=== PATIENT | female | born 1995 | race Caucasian/White ===

== ENCOUNTER 2020-01-26 07:12 | Inpatient (IN) | payer BC ==
[2020-01-26] VITALS (69 sets, daily range): BP systolic 106–151; BP diastolic 57–91
[~2020-01-26] VITALS: Ht 160 cm; Wt 62.7 kg
--- NOTE | 2020-01-26 07:20 | NUR ---
GILBERT MALONE presented to unit via ambulation from home, accompanied by , for INDUCTION. GILBERT MALONE weighed, gowned, voided, and to bed. EFHM and TOCO applied, VS taken. GILBERT MALONE oriented to bed controls, call light, TV, heat, and A/C controls.
[2020-01-26] MEDS ORDERED: D5 LR IV SOLUTION 1,000 ML IV ONE (07:25)
[2020-01-26] MEDS: D5 LR IV SOLUTION 1,000 ML IV SCH ×2 (07:40→14:23)
[2020-01-26] MEDS ORDERED: OXYTOCIN PRE-MIX DRIP 500 ML IV ONE (07:56)
[2020-01-26] MEDS ORDERED: IBUP-1780 PO (08:03)
[2020-01-26] MEDS ORDERED: DOCU-143 PO (08:03)
[2020-01-26] MEDS ORDERED: OXYC1TAB87 PO (08:03)
--- NOTE | 2020-01-26 08:04 | Discharge Inst-Surgical ---
Discharge Inst-Surgical Depart Medication/Instructions New, Converted or Re-Newed RX: RX on Chart Consults/Follow Up Patient Instructions: As directed Orders & Referrals Follow Up Appt: Call to make follow up appt. for patient in 4 weeks. Activity Per routine post vaginal delivery instructions. Please call in RX to patient pharmacy. Diet as tolerated Patient may shower or tub bathe as desired. Activity Activity as Tolerated: No Diet Discharge Diet: No Restrictions ANDREW HOPSON MD Jan 26, 2020 08:04
[2020-01-26 08:05] LABS: BASOPHILS % (AUTO) 0 % (0-10); EOSINOPHILS # (AUTO) 0.1 10^3/uL (0.0-0.3); EOSINOPHILS % (AUTO) 1 % (0-10); HEMATOCRIT 39 % (35-52); HEMOGLOBIN 13.6 G/DL (11.5-16.0); LYMPHOCYTES # (AUTO) 1.8 X 10^3 (1.0-4.0); LYMPHOCYTES % (AUTO) 22 % (12-44); MEAN CORPUSCULAR HEMOGLOBIN 32 PG (25-34); MEAN CORPUSCULAR HGB CONC 35 G/DL (32-36); MEAN CORPUSCULAR VOLUME 92 FL (80-99); MONOCYTES # (AUTO) 0.6 X 10^3 (0.0-1.0); MONOCYTES % (AUTO) 8 % (0-12); NEUTROPHILS # (AUTO) 5.5 X 10^3 (1.8-7.8); NEUTROPHILS % (AUTO) 69 % (42-75); PLATELET COUNT 188 10^3/uL (130-400); RED CELL DISTRIBUTION WIDTH 12.9 % (10.0-14.5)
--- NOTE | 2020-01-26 08:06 | History & Physical ---
History and Physical Date Seen by Provider: Jan 26, 2020 Time Seen by Provider: 08:04 This patient is a 23-year-old 1 white female with EDC of February 02, 2020 putting her now at 39 weeks gestation. She is admitted for induction of labor. She denies ruptured membranes or bleeding. Her GBS culture after 35 weeks gestation was negative. Having occasional contractions. She has had no complications with this . Penicillin and sulfa are her allergies Medications include vitamins Medical social and surgical histories are per the antepartum record HEENT exam is normal Neck is supple no lymphadenopathy no thyromegaly Abdomen gravid soft nontender nondistended Extremities show no clubbing or cyanosis. There is no Homans sign. Pelvic exam is pending - prior exam form in clinic showed a cervix 2 cm dilated 50 percent effaced and 0 station soft and anterior putting her with that score of Bishops 8 or more Assessment and plan term at 39 weeks gestation with a favorable cervix admitted now for induction of labor. We anticipate a vaginal delivery. 39 week and elective induction of labor Allergies and Home Medications Allergies Coded Allergies: Penicillins (Verified Allergy, Unknown, HIVES/SWELLING, 01/26/20) Sulfa (Sulfonamide Antibiotics) (Verified Allergy, Unknown, UNSURE, 01/26/20) Home Medications Docusate Sodium 100 Mg Capsule, 100 MG PO BID Prescribed by: ANDREW CHEEMA on 01/26/20 08 Ibuprofen 800 Mg Tablet, 800 MG PO Q6H PRN for PAIN Prescribed by: ANDREW CHEEMA on 01/26/20 08 Oxycodone HCl/Acetaminophen 1 Each Tablet, 1 TAB PO Q4H Prescribed by: ANDREW CHEEMA on 01/26/20 08 Patient Home Medication List Home Medication List Reviewed: Yes ANDREW HOPSON MD Jan 26, 2020 08:06
[2020-01-26] MEDS: OXYTOCIN PRE-MIX DRIP 500 ML IV SCH ×2 (08:15→09:37)
[2020-01-26] MEDS ORDERED: fentaNYL 2 mcg/ml BUPIVA 0.125 100 ML ONE (12:04)
[2020-01-26] MEDS ORDERED: fentaNYL INJECTION 100 MCG/2 ML AMP ONE (12:16)
[2020-01-26] MEDS ORDERED: BUPIVACAINE 0.25% 30 ML (SENSORCAINE) VIAL ONE (12:16)
--- NOTE | 2020-01-26 12:22 | NUR ---
here for epidural placement. Procedure explained, consent reviewed and signed by anesthesia. Questions answered to patient's satisfaction. Time out taken to verify correct patient/procedure. Patient up to side of bed, assisted into sitting position. Betadine prep done x3 and sterile drape applied. Local done, see anesthesia record. Test dose given, see anesthesia record for drug and dosage. Epidural catheter secured in place. Epidural placement complete. Assisted back into bed, monitors adjusted. Epidural dosed, see anesthesia record. Epidural of Sufenta/Bupvicaine @_12cc/hr stated per pump. Patient tolerated procedure well.
[2020-01-26] MEDS ORDERED: LACTATED RINGERS 1,000 ML IV ONE (12:53)
[2020-01-26] MEDS ORDERED: ONDANSETRON 4 MG/2 ML (SDV) Z0FRAN IV PRN (13:00)
[2020-01-26] MEDS ORDERED: CATHETER FLUSH 10 ML SYR IV PRN (13:00)
[2020-01-26] MEDS ORDERED: NALOXONE 0.4 MG/ML 1 ML (NARCAN) VIAL IV PRN (13:00)
[2020-01-26] MEDS ORDERED: EPIDURAL (fentaNYL 2 MCG/ML BUPIVA 0.125%)100 ML BAG EPI SCH (13:00)
[2020-01-26] MEDS ORDERED: diphenhydrAMINE 50 MG/ML INJ (BENADRYL) IV PRN (13:00)
[2020-01-26] MEDS ORDERED: LIDOCAINE/EPI 2% 1:200,00 (XYLOCAINE) 10 ML VIAL ONE (16:59)
--- NOTE | 2020-01-26 19:18 | OPERATIVE REPORT ---
DATE OF SERVICE: 01/26/2020 The patient delivered by term spontaneous vaginal delivery at 39 weeks gestation a viable female with Apgars of 8 and 9 at 1 and 5 minutes respectively, weight of 6 pounds 12 ounces. time of 18:33 and a cord blood pH of 7.24. The infant was delivered over multiple second-degree lacerations of the perineum and the right and left lateral sulcus under epidural analgesia that was augmented with local analgesia infiltrated into the perineal body. The infant was bulb suctioned on delivery of the head and again on completion of delivery. Umbilical cord was fairly promptly pulseless. It was doubly clamped, the father cut the cord, the baby was passed to mom's abdomen. Cord bloods were obtained. The placenta delivered promptly spontaneously Elizondo. It was normal with a 3-vessel cord. The cervix, vagina, rectum, and perineum were examined and found intact except for the right and left lateral sulcus first-degree lacerations with a second-degree perineal and posterior vaginal floor laceration. The multiple defects were repaired and closed with a single suture of 3-0 Vicryl Rapide in the usual manner to good hemostasis and good reapproximation. Sponge and needle counts were correct on completion of the delivery and the repair. Estimated blood loss was around 200 to 250 mL. The patient tolerated the delivery and the repair well and remained in the LDR for recovery. The baby remained with the mom. Job ID: [id number] DocumentID: [id number] Dictated Date: 01/26/2020 19:00:15 Supervisor Remelt Date: 01/26/2020 19:18:12 Dictated By: ANDREW HOPSON MD MTDD
[2020-01-26] MEDS ORDERED: KETOROLAC 30 MG/ML VIAL ONE (20:06)
[2020-01-26] MEDS ORDERED: DOCUSATE SODIUM 100 MG (COLACE) CAP PO ONE (20:06)
[2020-01-26] MEDS ORDERED: OXYTOCIN PRE-MIX DRIP 500 ML IV SCH (20:09)
[2020-01-26] MEDS: KETOROLAC 30 MG/ML VIAL IVP SCH (20:15)
[2020-01-26] MEDS ORDERED: MEASLES,MUMPS,RUBELLA 1 EA INJ SC ONE (20:15)
[2020-01-26] MEDS ORDERED: ONDANSETRON 4 MG/2 ML (SDV) Z0FRAN IVP PRN (20:15)
[2020-01-26] MEDS: DOCUSATE SODIUM 100 MG (COLACE) CAP PO SCH (20:15)
[2020-01-26] MEDS ORDERED: BENZOCAINE/MENTHOL (DERMOPLAST) 60 ML CAN TP PRN (20:15)
[2020-01-26] MEDS ORDERED: oxyCODONE/APAP 5/325MG (PERCOCET 5) TABLET PO PRN (20:15)
[2020-01-26] MEDS ORDERED: TETANUS,DIPTH,PERTUSS P/F (BOOSTRIX) 0.5 ML VIAL IM ONE (20:15)
[2020-01-27] MEDS: KETOROLAC 30 MG/ML VIAL IVP SCH (02:37)
[2020-01-27 05:45] VITALS: BP 109/71
[2020-01-27] MEDS ORDERED: IBUPROFEN 800 MG (MOTRIN) TAB PO ONE ×2 (08:07→14:08)
--- NOTE | 2020-01-27 08:12 | Anesthesia-Regional Post-Op ---
Regional Patient Condition Mental Status: Alert, Oriented x3 Circulation: Same as Pre-Op Headache: Absent Sensation: Full Recovery Motor Block: Absent Post Op Complications Complications None Follow Up Care/Instructions Patient Instructions None needed. Anesthesia/Patient Condition Patient is doing well, no complaints, stable vital signs, no apparent adverse anesthesia problems. No complications reported per nursing. GALILEO PINEDA CRNA Jan 27, 2020 08:12
[2020-01-27] MEDS: IBUPROFEN 800 MG (MOTRIN) TAB PO SCH ×3 (08:16→20:13)
[2020-01-27] MEDS: DOCUSATE SODIUM 100 MG (COLACE) CAP PO SCH ×2 (08:16→20:13)
[2020-01-27 08:19] VITALS: BP 124/76
--- NOTE | 2020-01-27 10:09 | NUR ---
Dr. Jay here to see pt.
--- NOTE | 2020-01-27 10:22 | Progress Note ---
Standard Progress Note Progress Notes/Assess & Plan Date Seen by a Provider: Jan 27, 2020 Time Seen by a Provider: 10:21 Progress/Assessment & Plan This patient is without complaint. She is ambulating, voiding, tolerating oral intake well has good pain control. Vital Signs 01/27/20 08:19 Temp 36.5 Pulse 70 Resp 18 B/P (MAP) 124/76 (92) Pulse Ox 98 O2 Delivery Room Air Vital signs are stable. Patient is afebrile. The abdomen is benign. Extremities show no clubbing cyanosis. There is no Homans sign. Assessment and plan day number 1 status post term spontaneous vaginal delivery at 39+ weeks gestation. Patient is doing well and will have routine convalescence care Final Diagnosis 39 week spontaneous vaginal delivery ANDREW HOPSON MD Jan 27, 2020 10:22
[2020-01-27 12:00] VITALS: BP 118/73
[2020-01-27 18:00] VITALS: BP 120/68
[2020-01-28] VITALS: BP 104/70
[2020-01-28] MEDS: IBUPROFEN 800 MG (MOTRIN) TAB PO SCH ×2 (03:08→09:43)
[2020-01-28] MEDS: DOCUSATE SODIUM 100 MG (COLACE) CAP PO SCH (09:43)
--- NOTE | 2020-01-28 10:15 | NUR ---
here to see pt.
[2020-01-28 10:18] VITALS: BP 114/69
--- NOTE | 2020-01-28 10:18 | NUR ---
initial shift assessment completed, see interventions for further.
--- NOTE | 2020-01-28 10:22 | Progress Note ---
Standard Progress Note Progress Notes/Assess & Plan Date Seen by a Provider: Jan 28, 2020 Time Seen by a Provider: 10:21 Progress/Assessment & Plan This patient is without complaint. She is ambulating, voiding, tolerating oral intake well has good pain control. Vital Signs 01/27/20 08:19 Temp 36.5 Pulse 70 Resp 18 B/P (MAP) 124/76 (92) Pulse Ox 98 O2 Delivery Room Air Vital signs are stable. Patient is afebrile. The abdomen is benign. Extremities show no clubbing cyanosis. There is no Homans sign. Assessment and plan day number 1 status post term spontaneous vaginal delivery at 39+ weeks gestation. Patient is doing well and will have routine convalescence care January 28, 2020 Patient is without. She is ambulating, voiding, tolerating oral intake well and has good pain control. Patient is requesting discharge home. Vital Signs Date Time Temp Pulse Resp B/P (MAP) Pulse Ox O2 Delivery O2 Flow Rate FiO2 01/28/20 00:00 36.4 66 18 104/70 (81) 99 Room Air 01/27/20 18:00 36.8 82 18 120/68 (85) Room Air 01/27/20 12:00 36.7 68 18 118/73 (88) 98 Room Air Vital signs are stable. Patient is afebrile. The abdomen is benign. Extremities show no clubbing or cyanosis. Assessment and plan day number 2 status post term spontaneous vaginal delivery at 39 weeks gestation. Plan is for discharge home with follow- up in clinic Final Diagnosis 39 week spontaneous vaginal delivery ANDREW HOPSON MD Jan 28, 2020 10:22
--- NOTE | 2020-01-28 12:02 | NUR ---
dismissal instructions given, verbalizes understanding. instructed pt to schedule 4 week PP appointment. reviewed Rx's, frequency and dosing. signature page signed, placed on chart.
--- NOTE | 2020-01-28 12:29 | NUR ---
Motrin and Colace Rx called into [facility] per request.
--- NOTE | 2020-01-28 12:35 | NUR ---
pt ambulated to private vehicle with this RN, and @ side. secured in rear facing car seat. pt stable with no sx's of distress.
== END 2020-01-28 12:35 | disposition home or self-care (01) | DRG 807 ==
LOC: LDRP 07:12
PROVIDERS: ADMIT Obstetrics & Gynecology; ATTEND Obstetrics & Gynecology
PROC: 10E0XZZ Delivery of Products of Conception, External Approach (ICD-10-PCS; principal; 2020-01-26)
PROC: 0KQM0ZZ Repair Perineum Muscle, Open Approach (ICD-10-PCS; 2020-01-26)
PROC: 3E033VJ Introduction of Other Hormone into Peripheral Vein, Percutaneous Approach (ICD-10-PCS; 2020-01-26)
DX: O70.1 Second degree perineal laceration during delivery (principal); Z37.0 Single live birth; Z3A.39 39 weeks gestation of pregnancy; Z88.0 Allergy status to penicillin; Z88.2 Allergy status to sulfonamides
CPT/HCPCS: 36415; 85025; 86850; 86900; 86901

== ENCOUNTER 2020-08-26 19:25 | Emergency (ER) | payer BC ==
[~2020-08-26] VITALS: Ht 160 cm; Wt 49.8 kg
[~2020-08-26 19:25] MED LIST: DOCU-143 PO; IBUP-1780 PO; OXYC1TAB87 PO
--- NOTE | 2020-08-26 20:05 | ED Cough/URI ---
General Chief Complaint: Respiratory Problems Stated Complaint: COVID POSITIVE/SOB Source: patient Exam Limitations: no limitations History of Present Illness Date Seen by Provider: Aug 26, 2020 Time Seen by Provider: 19:45 Initial Comments Patient presents to ER by private conveyance with chief complaint that she's had a headache since , 4 days ago and yesterday lost her sense of taste and smell. This morning she felt a little bit under the weather with malaise and shortness of breath very mild and a very slight sore throat so she went to [facility] and was diagnosed with COVID 19. She's had no fevers nausea vomiting or diarrhea. Throughout the day she says she's felt short of breath with exertion as well as even sitting still so she thought she should come out and get checked out. She does have a baseline history of anxiety but does not take any medicines for. No significant family medical history. No history of surgeries. She does not smoke drink or use drugs. Allergies and Home Medications Allergies Coded Allergies: Penicillins (Verified Allergy, Unknown, HIVES/SWELLING, 01/26/20) Sulfa (Sulfonamide Antibiotics) (Verified Allergy, Unknown, UNSURE, 01/26/20) Home Medications Docusate Sodium 100 Mg Capsule, 100 MG PO BID Prescribed by: ANDREW CEHEMA on 01/26/20 08 Ibuprofen 800 Mg Tablet, 800 MG PO Q6H PRN for PAIN Prescribed by: ANDREW CHEEMA on 01/26/20 08 Oxycodone HCl/Acetaminophen 1 Each Tablet, 1 TAB PO Q4H Prescribed by: ANDREW CHEEMA on 01/26/20 08 Patient Home Medication List Home Medication List Reviewed: Yes Review of Systems Review of Systems Constitutional: No chills, No fever; malaise EENTM: No ear discharge, No hearing loss, No ear pain Respiratory: No cough; short of breath; No wheezing Cardiovascular: No chest pain, No palpitations Gastrointestinal: No abdominal pain, No heartburn, No nausea, No vomiting Genitourinary: No discharge, No dysuria Musculoskeletal: No back pain, No joint pain Skin: No pruritus, No rash Past Phylzuh-Umfprm-Rrijmq Hx Patient Social History Alcohol Use: Occasionally Uses Recreational Drug Use: No Smoking Status: Never a Smoker Recent Foreign Travel: No Contact w/Someone Who Travel: No Recent Hopitalizations: No Physical Abuse: No Sexual Abuse: No Mistreated: No Fear: No Immunizations Up To Date PED Vaccines UTD: Yes Seasonal Allergies Seasonal Allergies: Yes (mild) Past Medical History Surgeries: Yes Respiratory: No Cardiac: No Neurological: No Sexually Transmitted Disease: No HIV/AIDS: No Genitourinary: No Gastrointestinal: No Musculoskeletal: No Endocrine: No HEENT: No Cancer: No Psychosocial: No Integumentary: Yes (mild) Eczema Blood Disorders: No Adverse Reaction/Blood Tranf: No (n/a) Family Medical History Patient reports no known family medical history. Physical Exam Capillary Refill : Height: '" Weight: lbs. oz. kg; 24.49 BMI Method: General Appearance: WD/WN, no apparent distress Eyes: Bilateral Eye Normal Inspection, Bilateral Eye PERRL, Bilateral Eye EOMI HEENT: PERRL/EOMI, normal ENT inspection, TMs normal, pharyngeal erythema Neck: non-tender, full range of motion, supple, normal inspection Respiratory: lungs clear, normal breath sounds, no respiratory distress, no accessory muscle use Cardiovascular: normal peripheral pulses, regular rate, rhythm Extremities: normal range of motion, normal capillary refill Neurologic/Psychiatric: alert, normal mood/affect, oriented x 3 Skin: normal color, warm/dry Progress/Results/Core Measures Suspected Sepsis SIRS Temperature: Pulse: Respiratory Rate: Blood Pressure / Mean: Results/Orders Vital Signs/I&O Capillary Refill : Progress Note : Time: 20:04 Progress Note Aseptic vital signs. Patient's heart rate is initially 110 however after reexa mined her and she has clear lungs with oxygen saturations are percent nonlabored breathing and explained to her that she is experiencing symptoms of COVID-19 however she is doing well she was happy with this explanation. She does have a pulse oximeter home and we did some teaching how to use it. We'll provide her with a handout as well as return precautions. We'll also provide her with a prescription for some nausea medicine and Tessalon Perles if she needs them. Departure Impression Primary Impression: COVID-19 Additional Impression: Anxiety about health Disposition: 01 HOME, SELF-CARE Condition: Stable Departure-Patient Inst. Decision time for Depature: 20:05 Referrals: NO,LOCAL PHYSICIAN (PCP) Primary Care Physician ANDREW HOPSON MD (Family) Primary Care Physician Patient Instructions: Coronavirus Disease 2019 (COVID-19) Overview Add. Discharge Instructions: Use the pulse oximeter if you feel short of breath. As long as you are consistently staying above 94% with a good pulsatile waveform on the pulse oximeter then you are breathing okay. If you have fever use Tylenol 1000 mg every 8 hours as necessary. If you have fever or body aches use ibuprofen 800 mg every 8 hours as necessary. If you have nausea use ondansetron one tablet every 6 hours under the tongue as necessary. If you have coughing fits you can use the Tessalon Perles 1 capsule every 6 hours as necessary. If you have difficulty sleeping you may take a tablet of melatonin 30 minutes prior to the time he would like to go to sleep. Typically start with 4 mg at nig ht as needed. You may also use a tablet of Benadryl for having difficulty sleeping. Promptly return to the nearest ER if you are having shortness of breath especially with low oxygen saturations, intractable nausea, dehydration or other worrisome symptoms. All discharge instructions reviewed with patient and/or family. Voiced understanding. Scripts Benzonatate (Tessalon Perle) 100 Mg Capsule 100 MG PO Q6H PRN for cough, #30 CAP 0 Refills Prov: GERMAINE FALCON 08/26/20 Ondansetron (Ondansetron Odt) 4 Mg Tab.rapdis 4 MG PO Q6H PRN for NAUSEA/VOMITING, #8 TAB 0 Refills Prov: GERMAINE FALCON 08/26/20 Work/School Note: Work Release Form Date Seen in the Emergency Department: Aug 26, 2020 Return to Work: Sep 03, 2020 Restrictions: No Restrictions Other Restrictions Listed Below: Must be symptoms free for 72 hours before released from quarantine. GERMAINE FALCON Aug 26, 2020 20:05
[2020-08-26] MEDS ORDERED: BENZ-13 PO (20:07)
[2020-08-26] MEDS ORDERED: ONDA4TAB11 PO (20:07)
[2020-08-26 20:25] VITALS: BP 113/73
== END 2020-08-26 20:25 | disposition home or self-care (01) ==
LOC: EDUNIT# 19:25 → ER 19:27
DX: U07.1 COVID-19 (principal); F41.1 Generalized anxiety disorder; Z88.0 Allergy status to penicillin; Z88.2 Allergy status to sulfonamides
CPT/HCPCS: 99282

== ENCOUNTER → 2021-10-07 | Outpatient (CLI) | payer BC ==
[~2021-10-07] MED LIST changes: +BENZ-13 PO; +ONDA4TAB11 PO
--- NOTE | 2021-10-07 13:37 | Diagnostic Imaging Report ---
INDICATION: survey. TECHNIQUE: Multiple real-time grayscale images were obtained over the gravid uterus. COMPARISON: None. FINDINGS: There is a single live fetus in a cephalic presentation. heart rate was recorded at 142 BPM. Placenta is anterior. Amniotic fluid volume is normal. Cervical length is 4.8 cm. survey shows kidneys, bladder, and stomach to be unremarkable. brain is unremarkable. There is a four-chamber heart. There is a three-vessel cord with normal insertion. spine is unremarkable. Biometrical measurements are as follows: Biparietal 5.14 cm, age 21 weeks 5 days. Head circumference 19.45 cm, age 21 weeks 5 days. Abdominal circumference 16.30 cm, age 21 weeks 3 days. Femur length 3.74 cm, age 22 weeks 0 days. Sonographic estimate age: 21 weeks 5 days. Sonographic estimated date of delivery: 02/12/2022. Estimated Weight: 438 gm (+/- 64 gm). LMP percentile: 63%. heart rate: 142 beats per minute. number: 1 of 1. IMPRESSION: Single live IUP of 21 weeks 5 days gestational age with estimated date of confinement sonographically of 02/12/2022. No complicating features are detected. Dictated by: Dictated on workstation # [id number]
== END ==
LOC: RAD 10:00
PROVIDERS: ATTEND Obstetrics & Gynecology
DX: Z34.82 Encounter for supervision of other normal pregnancy, second trimester (principal); Z3A.21 21 weeks gestation of pregnancy
CPT/HCPCS: 76805

== ENCOUNTER 2022-02-03 09:34 | Inpatient (IN) | payer BC ==
[2022-02-03] VITALS (26 sets, daily range): BP systolic 100–130; BP diastolic 55–90
[~2022-02-03] VITALS: Ht 160 cm; Wt 65.2 kg
[2022-02-03 10:11] LABS: BILIRUBIN,URINE NEGATIVE (NEGATIVE); CLARITY,URINE CLEAR; COLOR,URINE YELLOW; GLUCOSE, URINE (UA) NEGATIVE (NEGATIVE); KETONES,URINE NEGATIVE (NEGATIVE); LEUKOCYTE ESTERASE ,URINE 1+ (NEGATIVE); NITRITE,URINE NEGATIVE (NEGATIVE); PROTEIN,URINE NEGATIVE (NEGATIVE)
[2022-02-03] MEDS ORDERED: PREN-37 PO (10:14)
[2022-02-03 10:18] LABS: BACTERIA,URINE FEW /HPF
[2022-02-03 12:25] LABS: BASOPHILS % (AUTO) 0 % (0-10); EOSINOPHILS % (AUTO) 0 % (0-10); HEMATOCRIT 41 % (35-52); LYMPHOCYTES # (AUTO) 2.3 10^3/uL (1.0-4.0); LYMPHOCYTES % (AUTO) 23 % (12-44); MEAN CORPUSCULAR HEMOGLOBIN 32 pg (25-34); MEAN CORPUSCULAR HGB CONC 34 g/dL (32-36); MEAN CORPUSCULAR VOLUME 95 fL (80-99); MEAN PLATELET VOLUME 11.1 fL (9.0-12.2); MONOCYTES # (AUTO) 0.6 10^3/uL (0.0-1.0); MONOCYTES % (AUTO) 6 % (0-12); NEUTROPHILS # (AUTO) 7.1 10^3/uL (1.8-7.8); NEUTROPHILS % (AUTO) 70 % (42-75); PLATELET COUNT 200 10^3/uL (130-400); WHITE BLOOD COUNT 10.2 10^3/uL (4.3-11.0)
[2022-02-03] MEDS: D5 LR IV SOLUTION 1,000 ML IV SCH (12:27)
[2022-02-03] MEDS: CATHETER FLUSH 10 ML SYR IV SCH (14:00)
[2022-02-03] MEDS ORDERED: OXYTOCIN PRE-MIX DRIP 500 ML IV PRN (14:30)
[2022-02-03] MEDS ORDERED: fentaNYL 2 mcg/ml BUPIVA 0.125 100 ML ONE (15:14)
[2022-02-03] MEDS ORDERED: ONDANSETRON 4 MG/2 ML (SDV) Z0FRAN IV PRN (16:45)
[2022-02-03] MEDS ORDERED: LACTATED RINGERS 1,000 ML IV SCH (16:45)
[2022-02-03] MEDS ORDERED: METOCLOPRAMIDE INJ 10 MG/2 ML (REGLAN) IV PRN (16:45)
[2022-02-03] MEDS ORDERED: diphenhydrAMINE 50 MG/ML INJ (BENADRYL) IV PRN (16:45)
[2022-02-03] MEDS ORDERED: NALOXONE 0.4 MG/ML 1 ML (NARCAN) VIAL IV PRN ×2 (16:45)
[2022-02-03] MEDS ORDERED: EPIDURAL (fentaNYL 2 MCG/ML BUPIVA 0.125%)100 ML BAG EPI SCH (16:45)
--- NOTE | 2022-02-03 20:05 | History & Physical ---
History and Physical Date Seen by Provider: Feb 03, 2022 Time Seen by Provider: 12:00 This patient is a 26-year-old 2 para 1 female patient admitted in active labor earlier today. She denies rupture membranes or bleeding. She had no complications with this . Her GBS culture was negative. Allergies are to penicillins and sulfa Medications are vitamins Medical social and surgical history is all per the antepartum record HEENT exam is normal Neck is supple no lymphadenopathy no thyromegaly Abdomen is gravid soft nontender nondistended Extremities show no clubbing or cyanosis. There is no Homans' sign. Pelvic exam at the time my evaluation showed a cervix 4 to 5 cm dilated 80% effaced -2 station vertex presentation amniotomy was performed with release of clear fluid. Assessment and plan Term at 38+ weeks gestation admitted in active labor. Anticipate vaginal delivery 38 weeks and labor Allergies and Home Medications Allergies Coded Allergies: Penicillins (Verified Allergy, Unknown, HIVES/SWELLING, 01/26/20) Sulfa (Sulfonamide Antibiotics) (Verified Allergy, Unknown, UNSURE, 01/26/20) Patient Home Medication List Home Medication List Reviewed: Yes Benzonatate (Tessalon Perle) 100 Mg Capsule, 100 MG PO Q6H PRN for cough Prescribed by: GERMAINE FALCON on 08/26/202006 Docusate Sodium (Colace) 100 Mg Capsule, 100 MG PO BID Prescribed by: ANDREW CHEEMA on 01/26/20 08 Ibuprofen (Ibuprofen) 800 Mg Tablet, 800 MG PO Q6H PRN for PAIN Prescribed by: ANDREW CHEEMA on 01/26/20 08 Ondansetron (Ondansetron Odt) 4 Mg Tab.rapdis, 4 MG PO Q6H PRN for NAUSEA/VOMITING Prescribed by: GERMAINE FALCON on 08/26/202006 Oxycodone HCl/Acetaminophen (Percocet 5-325 mg Tablet) 1 Each Tablet, 1 TAB PO Q4H Prescribed by: ANDREW CHEEMA on 01/26/20 08 Vit/Iron Fumarate/FA ( Tablet) 1 Each Tablet, 1 EACH PO DAILY, (Reported) Entered as Reported by: BRENDAN HO on 02/03/22 1014 Last Action: New Order ANDREW HOPSON MD Feb 03, 2022 20:05
[2022-02-03] MEDS ORDERED: DOCU-143 PO (20:08)
[2022-02-03] MEDS ORDERED: OXYC1TAB87 PO (20:08)
[2022-02-03] MEDS ORDERED: IBUP-1780 PO (20:08)
--- NOTE | 2022-02-03 20:09 | Discharge Inst-Surgical ---
Discharge Inst-Surgical Depart Medication/Instructions New, Converted or Re-Newed RX: Transmitted to Pharmacy Consults/Follow Up Patient Instructions: As directed Orders & Referrals Follow Up Appt: Call to make follow up appt. for patient in 4 weeks. Activity Per routine post vaginal delivery instructions. Diet as tolerated Patient may shower or tub bathe as desired. Activity Activity as Tolerated: Yes Diet Discharge Diet: No Restrictions ANDREW HOPSON MD Feb 03, 2022 20:09
[2022-02-03] MEDS ORDERED: OXYTOCIN PRE-MIX DRIP 500 ML IV SCH (23:15)
[2022-02-03] MEDS: KETOROLAC 30 MG/ML VIAL IVP SCH (23:15)
[2022-02-03] MEDS ORDERED: oxyCODONE/APAP 5/325MG (PERCOCET 5) TABLET PO PRN (23:15)
[2022-02-03] MEDS ORDERED: ONDANSETRON 4 MG/2 ML (SDV) Z0FRAN IVP PRN (23:15)
[2022-02-03] MEDS ORDERED: TETANUS,DIPTH,PERTUSS P/F (BOOSTRIX) 0.5 ML VIAL IM ONE (23:15)
[2022-02-03] MEDS ORDERED: BENZOCAINE/MENTHOL (DERMOPLAST) 56 ML CAN TP PRN (23:15)
[2022-02-04] VITALS (7 sets, daily range): BP systolic 102–118; BP diastolic 55–75
[2022-02-04] MEDS: D5 LR IV SOLUTION 1,000 ML IV SCH (04:47)
[2022-02-04] MEDS: KETOROLAC 30 MG/ML VIAL IVP SCH (05:54)
[2022-02-04] MEDS: CATHETER FLUSH 10 ML SYR IV SCH ×2 (05:54→07:36)
--- NOTE | 2022-02-04 08:21 | Progress Note ---
Standard Progress Note Progress Notes/Assess & Plan Date Seen by a Provider: Feb 04, 2022 Time Seen by a Provider: 08:20 Progress/Assessment & Plan This patient is without complaint. She is ambulating, voiding, tolerating oral intake well and has good pain control. Vital Signs Date Time Temp Pulse Resp B/P (MAP) Pulse Ox O2 Delivery O2 Flow Rate FiO2 02/04/22 05:55 36.4 68 16 108/61 (77) 97 02/04/22 01:40 36.6 86 16 112/69 (83) 100 02/03/22 23:18 36.4 68 16 114/70 (85) 02/03/22 21:05 81 16 105/74 (84) 02/03/22 20:52 36.2 79 18 101/63 (76) 02/03/22 20:10 90 18 101/75 (84) 02/03/22 19:55 75 18 118/65 (82) 02/03/22 19:40 75 18 126/60 (82) 02/03/22 19:25 97 16 123/90 (101) 02/03/22 19:10 36.2 69 16 114/65 (81) 02/03/22 18:50 57 129/76 (93) 02/03/22 18:30 60 120/87 (98) 92 02/03/22 18:15 60 15 113/73 (86) 92 Room Air 02/03/22 18:00 36.5 64 16 104/64 (77) 100 Room Air 02/03/22 17:35 62 100/59 (73) 100 02/03/22 17:25 71 103/58 (73) 100 02/03/22 17:09 36.9 65 15 101/55 (70) 100 Room Air 02/03/22 16:50 69 120/69 (86) 100 02/03/22 16:43 82 103/60 (74) 100 02/03/22 16:40 71 130/70 (90) 100 02/03/22 16:38 76 125/74 (91) 100 02/03/22 16:35 78 128/72 (90) 100 02/03/22 16:32 75 123/77 (92) 100 02/03/22 16:29 91 125/78 (94) 100 02/03/22 16:26 77 121/73 (89) 100 02/03/22 16:02 36.8 66 18 113/66 (82) 02/03/22 14:31 36.7 02/03/22 12:47 36.8 73 14 118/74 (89) 02/03/22 10:10 36.6 86 18 99 Room Air I & O 02/04/22 07:00 Intake Total 1500 ml Output Total 150 ml Balance 1350 ml Vital signs are stable. Patient is afebrile. The abdomen is benign Extremities show no clubbing cyanosis. There is no Homans' sign. Assessment and plan day #1 status post term spontaneous vaginal livery at 38+ weeks gestation. Plan is for routine convalescent care with discharge home today or tomorrow as patient prefers Final Diagnosis 38-week spontaneous vaginal delivery ANDREW HOPSON MD Feb 04, 2022 8:21 am
--- NOTE | 2022-02-04 08:24 | OB Labor & Delivery Record ---
Labor & Delivery This patient delivered by term spontaneous vaginal livery a viable male with Apgars of 10 and 10 at 1 and 5 minutes effective weight of 6 pounds 15 ounces time of 2023. The was delivered over a second-degree perineal laceration under epidural analgesia. The was bulb suctioned on delivery of the head again on completion of delivery. The umbilical cord was relatively pulseless was doubly clamped the father cut the cord the baby was passed to mom's abdomen. Cord bloods were obtained the placenta delivered then spontaneously Salbador it was normal with a three-vessel cord. The cervix vagina rectum perineum were examined and found intact except for a somewhat annular perineal laceration of second-degree nature that was repaired with a single suture of 3-0 Vicryl repeat under the epidural analgesia. Sponge needle counts were correct on completion of delivery repair blood loss was around 300 cc. Patient remained in the LDR for recovery the baby remained with mom ANDREW HOPSON MD Feb 04, 2022 8:23 am
[2022-02-04] MEDS: DOCUSATE SODIUM 100 MG (COLACE) CAP PO SCH ×2 (09:15→21:03)
[2022-02-04] MEDS ORDERED: IBUPROFEN 800 MG (MOTRIN) TAB PO ONE ×2 (13:23→18:41)
--- NOTE | 2022-02-04 14:17 | Anesthesia-Regional Post-Op ---
Regional Patient Condition Mental Status: Alert, Oriented x3 Circulation: Same as Pre-Op Headache: Absent Sensation: Full Recovery Motor Block: Absent Post Op Complications Complications None Follow Up Care/Instructions Patient Instructions None needed. Anesthesia/Patient Condition Patient is doing well, no complaints, stable vital signs, no apparent adverse anesthesia problems. FREDI METCALF DO Feb 04, 2022 14:17
[2022-02-09] MEDS ORDERED: IBUPROFEN 800 MG (MOTRIN) TAB PO SCH
== END 2022-02-04 22:25 | disposition home or self-care (01) | DRG 807 ==
LOC: LDRP 09:34 → OBSVTOIN 10:47 → LDRP 11:41
PROVIDERS: ADMIT Obstetrics & Gynecology; ATTEND Obstetrics & Gynecology
PROC: 10E0XZZ Delivery of Products of Conception, External Approach (ICD-10-PCS; principal; 2022-02-04)
PROC: 0KQM0ZZ Repair Perineum Muscle, Open Approach (ICD-10-PCS; 2022-02-04)
DX: O70.1 Second degree perineal laceration during delivery (principal); Z37.0 Single live birth; Z3A.38 38 weeks gestation of pregnancy; Z88.0 Allergy status to penicillin; Z88.2 Allergy status to sulfonamides
CPT/HCPCS: 36415; 81000; 85025; 86780; 86850; 86900; 86901; 87088; 99212

== ENCOUNTER → 2022-02-12 | Outpatient (CLI) | payer BC ==
[~2022-02-12] MED LIST changes: +PREN-37 PO
== END | disposition home or self-care (01) ==
LOC: LABNPT 13:31
PROVIDERS: ATTEND Obstetrics & Gynecology
DX: R30.9 Painful micturition, unspecified (principal)

== ENCOUNTER → 2022-02-12 | Outpatient (CLI) | payer BC ==
[2022-02-12 11:59] LABS: BASOPHILS % (AUTO) 0 % (0-10); EOSINOPHILS # (AUTO) 0.1 10^3/uL (0.0-0.3); EOSINOPHILS % (AUTO) 1 % (0-10); HEMATOCRIT 44 % (35-52); HEMOGLOBIN 14.7 g/dL (11.5-16.0); LYMPHOCYTES # (AUTO) 0.6 10^3/uL (1.0-4.0); LYMPHOCYTES % (AUTO) 4 % (12-44); MEAN CORPUSCULAR HEMOGLOBIN 32 pg (25-34); MEAN CORPUSCULAR HGB CONC 33 g/dL (32-36); MEAN CORPUSCULAR VOLUME 97 fL (80-99); MEAN PLATELET VOLUME 9.8 fL (9.0-12.2); MONOCYTES # (AUTO) 0.6 10^3/uL (0.0-1.0); MONOCYTES % (AUTO) 4 % (0-12); NEUTROPHILS # (AUTO) 12.9 10^3/uL (1.8-7.8); NEUTROPHILS % (AUTO) 91 % (42-75); PLATELET COUNT 317 10^3/uL (130-400); WHITE BLOOD COUNT 14.2 10^3/uL (4.3-11.0)
[2022-02-12 12:36] LABS: BAND NEUTROPHILS 7 %; LYMPHOCYTES % (MANUAL) 3 %; MONOCYTES % (MANUAL) 4 %; NEUTROPHILS % (MANUAL) 86 %; RBC MORPH NORMAL
== END ==
LOC: LABNPT 11:45
PROVIDERS: ATTEND Obstetrics & Gynecology
DX: N85.00 Endometrial hyperplasia, unspecified (principal); N89.8 Other specified noninflammatory disorders of vagina
CPT/HCPCS: 85007; 85027; 87088